=== PATIENT | female | born 1960 | race African-American/Black ===

== ENCOUNTER 2018-08-10 07:36 | Day surgery (SDC) | payer OTHER ==
[~2018-08-10] VITALS: Ht 149.9 cm; Wt 43.5 kg
[~2018-08-10 07:36] MED LIST: SEVEC800 PO; SODIUM CHLORIDE 0.9% 1,000 ML IV ONE
[2018-08-10] MEDS ORDERED: MIDAZOLAM HCL 2 MG/2 ML VIAL ONE (08:14)
[2018-08-10] MEDS ORDERED: FentaNYL CITRATE-PF 100 MCG/2 ML VIAL ONE (08:15)
[2018-08-10] MEDS ORDERED: SODIUM CHLORIDE 0.9% 1,000 ML IV ONE (08:21)
[2018-08-10] MEDS ORDERED: ALLO100T PO (08:42)
[2018-08-10] MEDS ORDERED: MethylPREDNISolone SOD SUCC 125 MG/2 ML VIAL IVP ONE (09:15)
[2018-08-10] MEDS ORDERED: MethylPREDNISolone SOD SUCC 125 MG/2 ML VIAL ONE (09:36)
[2018-08-10] MEDS ORDERED: OXYGEN THERAPY IH SCH (20:00)
== END 2018-08-10 11:00 | disposition home or self-care (01) ==
LOC: SURGERY 07:36
PROVIDERS: ATTEND Internal Medicine Critical Care Medicine
DX: J38.4 Edema of larynx (principal); B37.0 Candidal stomatitis; J44.9 Chronic obstructive pulmonary disease, unspecified; M10.9 Gout, unspecified; F17.210 Nicotine dependence, cigarettes, uncomplicated; Z88.8 Allergy status to other drugs, medicaments and biological substances; Z87.01 Personal history of pneumonia (recurrent)
CPT/HCPCS: 31623; 31624; 71045; 87015; 87070; 87101; 87205; 87206; 87220; 88112; 88312; J2250; J2930; J3010; J7030

== ENCOUNTER 2018-09-02 19:19 | Emergency (ER) | payer OTHER ==
[~2018-09-02] VITALS: Ht 149.9 cm; Wt 45.5 kg
[~2018-09-02 19:19] MED LIST changes: +ALLO100T PO; -SODIUM CHLORIDE 0.9% 1,000 ML IV ONE
[2018-09-02 20:09] LABS: BASOPHILS % (AUTO) 0.3 % (0.0-2.0); EOSINOPHILS % (AUTO) 0.2 % (1.0-6.0); HEMATOCRIT 40.2 % (36-46); LYMPHOCYTES # (AUTO) 0.8 K/uL (1.0-4.8); MEAN CORPUSCULAR HEMOGLOBIN 27.9 pg (26.0-34.0); MEAN CORPUSCULAR HGB CONC 32.4 G/dL (31.0-37.0); MEAN CORPUSCULAR VOLUME 86 fL (80-100); MONOCYTES # (AUTO) 0.7 K/uL (0.1-1.0); MONOCYTES % (AUTO) 7.7 % (2.0-9.0); NEUTROPHILS # (AUTO) 7.7 K/uL (1.8-7.7); NEUTROPHILS % (AUTO) 82.8 % (40.0-70.0); PLATELET COUNT (AUTO) 285 K/uL (150-450); RED BLOOD CELL COUNT(AUTO) 4.67 MIL/uL (4.00-5.20); RED CELL DISTRIBUTION WIDTH 16.3 % (11.5-14.5)
[2018-09-02 20:23] LABS: CALCIUM, TOTAL 10.8 mg/dL (8.8-10.5); CREATININE 7.43 mg/dL (0.60-1.30); POTASSIUM 4.5 mmol/L (3.5-5.1)
[2018-09-02 20:28] LABS: BILIRUBIN,TOTAL 0.3 mg/dL (0.1-1.0)
[2018-09-02 20:30] LABS: LACTIC ACID 0.9 mmol/L (0.4-2.0)
[2018-09-02 21:25] VITALS: BP 128/82
== END 2018-09-02 21:35 | disposition home or self-care (01) ==
LOC: EMS 19:19
DX: T78.40XA Allergy, unspecified, initial encounter (principal); N18.6 End stage renal disease; E78.00 Pure hypercholesterolemia, unspecified; F17.210 Nicotine dependence, cigarettes, uncomplicated; Z88.0 Allergy status to penicillin; Z88.8 Allergy status to other drugs, medicaments and biological substances; Z99.2 Dependence on renal dialysis; X58.XXXA Exposure to other specified factors, initial encounter
CPT/HCPCS: 83605

== ENCOUNTER 2019-05-10 06:28 | Day surgery (SDC) | payer OTHER ==
[~2019-05-10] VITALS: Ht 149.9 cm; Wt 43.6 kg
[~2019-05-10 06:28] MED LIST changes: +BENZ-51 PO; +PRED10 PO; +SEVE800T17 PO; -SEVEC800 PO; +SODIUM CHLORIDE 0.9% 1,000 ML ONE
[2019-05-10] MEDS ORDERED: SODIUM CHLORIDE 0.9% 1,000 ML IV ONE (06:30)
[2019-05-10] MEDS ORDERED: MIDAZOLAM HCL 2 MG/2 ML VIAL ONE (07:21)
[2019-05-10] MEDS ORDERED: FentaNYL CITRATE-PF 100 MCG/2 ML VIAL ONE (07:21)
[2019-05-10] MEDS ORDERED: MethylPREDNISolone SOD SUCC 125 MG/2 ML VIAL IVP ONE (08:45)
[2019-05-10] MEDS ORDERED: MethylPREDNISolone SOD SUCC 125 MG/2 ML VIAL ONE (08:57)
[2019-05-10] MEDS ORDERED: LIDOCAINE 2% 5 ML JELLY TP ONE (12:00)
[2019-05-10] MEDS ORDERED: LIDOCAINE 2% 30 ML JELLY TP ONE (12:00)
[2019-05-10] MEDS ORDERED: LIDOCAINE 4% 50 ML SOLUTION TP ONE (12:00)
[2019-05-10] MEDS ORDERED: ALBUTEROL SULFATE 2.5 MG/0.5 ML NEB SOLUTION NEB ONE (12:00)
[2019-05-10] MEDS ORDERED: OXYGEN THERAPY IH SCH (20:00)
== END 2019-05-10 10:05 | disposition home or self-care (01) ==
LOC: SURGERY 06:28
PROVIDERS: ATTEND Internal Medicine Critical Care Medicine
DX: R05 Cough (principal); R91.1 Solitary pulmonary nodule; J34.89 Other specified disorders of nose and nasal sinuses; J98.8 Other specified respiratory disorders; J38.4 Edema of larynx; B37.0 Candidal stomatitis; Z79.899 Other long term (current) drug therapy; N18.6 End stage renal disease; M10.9 Gout, unspecified; F17.210 Nicotine dependence, cigarettes, uncomplicated; Z98.890 Other specified postprocedural states
CPT/HCPCS: 31623; 31624; 71045; 87070; 87101; 87206; 87220; 93005; J2250; J2930; J3010; J7030; 87015; 87205

== ENCOUNTER 2021-01-03 06:13 | Day surgery (SDC) | payer OTHER ==
[2021-01-02 11:41] LABS: COVID AG,FIA SOURCE NASOPHARYNGEAL
[~2021-01-03] VITALS: Ht 147.3 cm; Wt 42.7 kg
[~2021-01-03 06:13] MED LIST changes: -ALLO100T PO; +ALLO100T2 PO; -BENZ-51 PO; +BENZ-70 PO; +SODIUM CHLORIDE 0.9% 1,000 ML IV ONE
[2021-01-03] MEDS ORDERED: MIDAZOLAM HCL 5 MG/ML VIAL ONE (08:05)
[2021-01-03] MEDS ORDERED: FentaNYL CITRATE PF 100 MCG/2 ML VIAL ONE (08:05)
[2021-01-03] MEDS ORDERED: MethylPREDNISolone SOD SUCC 40 MG/ML VIAL IVP ONE (09:45)
[2021-01-03] MEDS ORDERED: MethylPREDNISolone SOD SUCC 125 MG/2 ML VIAL ONE (09:48)
== END 2021-01-03 11:10 | disposition home or self-care (01) ==
LOC: SURGERY 06:13
PROVIDERS: ATTEND Internal Medicine Critical Care Medicine
DX: J38.4 Edema of larynx (principal); B37.0 Candidal stomatitis; R84.6 Abnormal cytological findings in specimens from respiratory organs and thorax; Z79.899 Other long term (current) drug therapy; Z87.891 Personal history of nicotine dependence; J44.9 Chronic obstructive pulmonary disease, unspecified; Z98.890 Other specified postprocedural states
CPT/HCPCS: 31623; 31624; 71045; 87015; 87070; 87077; 87101; 87186; 87205; 87206; 87220; 87426; 88108; 88184; 88185; 88312; 93005; C9803; J2250; J2930; J3010; J7030